=== PATIENT | male | born 1985 | race African-American/Black ===

== ENCOUNTER 2017-03-09 02:40 | Emergency (ER) | payer OTHER ==
--- NOTE | 2017-03-09 02:42 | PDOC ---
History of Present Illness - General Chief Complaint: Asthma Stated Complaint: ALLERGIES ACTING UP - History of Present Illness Initial Comments: 03/09/17 03:17 This 31-year-old man with a history of environmental ALLERGIES and asthma presents with of a few day history of progressive nasal congestion/runny nose, red/irritated eyes and pruritic skin rash. Although the patient has seasonal ALLERGIES, he was unsure what triggered his symptoms currently. Of note, patient moved into a new apartment one week ago. He states that he is unsure if there is any clear allergen present in the new apartment. Patient routinely takes albuterol inhaler as needed, Singulair, Claritin. He states although he had an occasional cough in the last week, his asthma seems to be under control and denies wheezing/shortness of breath No recent fever/chills, sore throat, productive cough, GI symptoms. Patient is waiting for his new insurance to take effect before he follows up with ear nose and throat physician. He has not had ALLERGY testing in recent years. Past History - Past Medical History Allergies/Adverse Reactions: Allergies Allergy/AdvReac Type Severity Reaction Status Date / Time shellfish derived Allergy Unknown Verified 11/11/12 17:18 No Known Drug Allergies Allergy Verified 03/09/17 02:45 SHRIMP Allergy Uncoded 11/11/12 17:20 Home Medications: Ambulatory Orders Albuterol Sulfate Inhaler - [Ventolin HFA Inhaler -] 1 - 2 inh IH QID #1 inhaler 01/03/12 Montelukast Na [Singulair -] 10 mg PO HS #20 tablet 08/29/12 Budesonide/Formeterol Fumarate [SYMBICORT 160/4.5mcg -] 1 inh PO DAILY 03/09/17 Cetirizine HCl [Zyrtec -] 10 mg PO DAILY #20 tablet 03/09/17 Olopatadine HCl [Patanol] 1 drop OU BID #1 bottle 03/09/17 Triamcinolone 0.5% Cream [Aristocort 0.5% Cream -] 1 gm TP BID #1 tube 03/09/17 Asthma: Yes - Immunization History Td Vaccination: No - Suicide/Smoking/Psychosocial Hx Smoking Status: No Smoking History: Never smoked Number of Cigarettes Smoked Daily: 0 Hx Alcohol Use: No Drug/Substance Use Hx: No Substance Use Type: None Hx Substance Use Treatment: No Review of Systems - Review of Systems Able to Perform ROS?: Yes Comments:: 12 point review of systems is negative except for what is noted in the history of present illness *Physical Exam - Physical Exam Comments: GENERAL: Adult male, alert and oriented 3, in no acute distress; speaking full sentences without difficulty HEAD: Normal with no signs of trauma. EYES: PERRLA, EOMI, sclera anicteric, erythematous conjunctiva with scanty crusting of eyelashes margins; no purulent exudate evident ENT: Ears normal, nares patent, oropharynx clear without exudates. Moist mucous membranes. NECK: Normal range of motion, supple without lymphadenopathy, JVD, or masses. LUNGS: Breath sounds equal, clear to auscultation bilaterally. No wheezes, and no crackles. HEART:Regular rate and rhythm, normal S1 and S2 without murmur, rub or gallop. ABDOMEN:.normal bowel sounds No guarding,tenderness or rebound.No masses No distention. EXTREMITIES: Normal range of motion, no edema. No clubbing or cyanosis. No erythema, or tenderness. NEUROLOGICAL: Cranial nerves II through XII grossly intact. Normal speech. No focal neurological deficits. MUSCULOSKELETAL: Back non-tender to palpation, no CVA tenderness SKIN: Warm, Dry, normal turgor, scattered fine papular rash of the back and anterior chest; no urticaria evident Progress Note - Progress Note Progress Note: This 31-year-old man with a history of environmental ALLERGIES and asthma presents with itchy, irritated, erythematous eyes along with runny nose/nasal congestion and itchy skin. Patient recently moved into a new apartment without a clear allergen being present in the new environment. Exam notable for clear lung shankar and good air exchange. Bilateral erythematous conjunctiva consistent with ALLERGIC conjunctivitis present. Clinical presentation most consistent with reaction to an environmental ALLERGEN ; since the pollen season has past, the patient has recently moved into a new apartment, allergen is most likely indoor in his new home. He states that Claritin has been the most effective antihistamine in the past but recently has been less effective. Patient will be given prescription for Zyrtec to be used as needed. Also, Patanol drops will be prescribed for his itchy/inflamed eyes. Triamcinolone 0.5 percent cream for his pruritic rash will also be described. Patient should return if he has wheezing or shortness of breath. Meanwhile, he should follow-up with his doctor if he has persistent symptoms of nasal congestion/rhinorrhea or ALLERGIC conjunctivitis. He should plan to follow-up with ENT/ALLERGY doctor when he has insurance coverage. *DC/Admit/Observation/Transfer Diagnosis at time of Disposition: Allergy, unspecified not elsewhere classified Qualifiers: Encounter type: initial encounter Qualified Code(s): T78.40XA - Allergy, unspecified, initial encounter - Discharge Dispostion Disposition: HOME Condition at time of disposition: Stable - Prescriptions Prescriptions: Cetirizine HCl [Zyrtec -] 10 mg PO DAILY #20 tablet Olopatadine HCl [Patanol] 1 drop OU BID #1 bottle Triamcinolone 0.5% Cream [Aristocort 0.5% Cream -] 1 gm TP BID #1 tube - Referrals Referrals: Jose Siddiqi MD [Primary Care Provider] - 1 week - Patient Instructions Additional Instructions: If Claritin does not work, Zyrtec 5 mg daily as needed Patanol eyedrops: 1 drop to each eye twice a day for 1 week Triamcinolone 0.5% cream to areas of for rash twice a day Continue other medications as prescribed Return to ER if you have severe wheezing/shortness of breath Follow-up with your general doctor within the next week Follow-up with ears/nose/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
[2017-03-09 02:45] VITALS: BP 147/81; PULSE 81; TEMP 98.5; BMI 38.0
== END 2017-03-09 03:14 | disposition home or self-care (01) ==
LOC: FER 02:40
DX: T78.40XA Allergy, unspecified, initial encounter (principal); Z91.013 Allergy to seafood; X58.XXXA Exposure to other specified factors, initial encounter
CPT/HCPCS: 99281-25

== ENCOUNTER 2018-02-15 23:40 | Emergency (ER) | payer OTHER ==
[2018-02-15 23:55] VITALS: BP 133/76; PULSE 86; TEMP 98.5; BMI 38.0
[2018-02-15] MEDS ORDERED: methylPREDNISolone NA SUCC 125 MG/2 ML VIAL IVPB ONE (23:55)
[2018-02-15] MEDS ORDERED: ALBUTEROL SO4 2.5/IPRATROPIUM 0.5 INH SOL 3 ML VIAL.NEB. NEB ONE ×2 (23:55→23:59)
[2018-02-15] MEDS ORDERED: MAGNESIUM SULF 50% (8.12 MEQ/2 ML-1 GM VIAL) IVPB ONE (23:56)
--- NOTE | 2018-02-15 23:58 | PDOC ---
Attending Attestation - Resident Resident Name: LaronDominik buckley - ED Attending Attestation I have performed the following: I have examined & evaluated the patient, The case was reviewed & discussed with the resident, I agree w/resident's findings & plan, Exceptions are as noted - HPI HPI: 02/15/18 23:56 32-year-old male with a long history of asthma and seasonal allergies presents with worsening wheezing over the past week. He takes Claritin, Cynbicort, respiratory treatments at home but he has not had improvement in his symptoms. - Physicial Exam PE: 02/15/18 23:58 Well-nourished well-developed 32-year-old male presents with diffuse wheezing and increased respiratory rate in moderate distress. Head normocephalic/atraumatic. Eyes pupils equal, reactive to light and accommodation, extraocular muscles intact. Neck no JVD, supple Lungs diffuse extremity wheezing and increased accessory muscle use. CVS tachycardia Abdomen protuberant but nontender. Extremities no rash. Skin warm and dry. Neuro alert and oriented 3, ambulatory. Psych anxious - Medical Decision Making 02/15/18 23:59 Differential diagnosis asthma exacerbation, seasonal allergies. IV steroids, CBC, comp, respiratory treatments 3, reassess 02/16/18 01:25 pt 's symptoms have improved bur he still has diffuse wheezing. cxr pending 02/16/18 01:27 labs are unremarkable
[2018-02-15] MEDS ORDERED: MAGNESIUM 1GM/D5W - 2 GM/200 ML IVPB IVPB ONE (23:59)
[2018-02-15] MEDS ORDERED: methylPREDNISolone NA SUCC 125 MG/2 ML VIAL ONE (23:59)
[2018-02-16] MEDS ORDERED: SODIUM CHLORIDE 1,000 ML IV STA (00:06)
[2018-02-16 00:27] LABS: BASO % 0.7 % (0-2.0); EOS % 13.3 % (0-4.5); HEMOGLOBIN 13.7 GM/dL (11.7-16.9); LYMPH % 28.1 % (8-40); MCH 26.6 pg (25.7-33.7); MCHC 32.7 g/dl (32.0-35.9); MEAN CELL VOLUME 81.2 fl (80-96); MEAN PLT VOLUME 8.6 fl (7.5-11.1); MONO % 11.2 % (3.8-10.2); NEUT % 46.7 % (42.8-82.8); PLATELET COUNT 229 K/MM3 (134-434); RBC 5.17 M/mm3 (4.00-5.60); RDW 14.2 % (11.9-15.9); WHITE BLOOD COUNT 6.9 K/mm3 (4.0-10.0)
[2018-02-16 00:51] LABS: ALBUMIN 3.5 g/dl (3.4-5.0); ALK PHOS 86 U/L (45-117); ANION GAP 8 MMOL/L (8-16); BILIRUBIN,TOTAL 0.4 mg/dL (0.2-1); BLOOD UREA NITROGEN 11 mg/dL (7-18); CALCIUM 8.7 mg/dL (8.5-10.1); CHLORIDE 105 mmol/L (98-107); CO2 27 mmol/L (21-32); GLUCOSE,RANDOM 102 mg/dL (74-106); POTASSIUM 3.9 mmol/L (3.5-5.1); SGOT/AST 19 U/L (15-37); SGPT/ALT 27 U/L (13-61); SODIUM 140 mmol/L (136-145); TOT PROT 6.9 g/dl (6.4-8.2)
--- NOTE | 2018-02-16 00:55 | PDOC ---
History of Present Illness - General Chief Complaint: Asthma Stated Complaint: ASTHMA Time Seen by Provider: 02/15/18 23:46 History Source: Patient Exam Limitations: No Limitations - History of Present Illness Initial Comments: 02/16/18 00:40 32 yo male pmh significant for eczema, allergies and asthma since childhood presents with worsening wheezing over the last week. Patient tried home dose of Cynbicort and daily Claritin without relief. Last asthma exacerbation was last February, received breathing treatments, steroids and 7 day steroid sara with improvement. Denies recent illness, N/V/F/C, CP but admits to non productive cough Past History - Past Medical History Allergies/Adverse Reactions: Allergies Allergy/AdvReac Type Severity Reaction Status Date / Time shellfish derived Allergy Unknown Verified 02/15/18 23:55 No Known Drug Allergies Allergy Verified 02/15/18 23:55 SHRIMP Allergy Uncoded 02/15/18 23:55 Home Medications: Ambulatory Orders Albuterol Sulfate Inhaler - [Ventolin HFA Inhaler -] 1 - 2 inh IH QID #1 inhaler 01/03/12 Montelukast Na [Singulair -] 10 mg PO HS #20 tablet 08/29/12 Budesonide/Formeterol Fumarate [SYMBICORT 160/4.5mcg -] 1 inh PO DAILY 03/09/17 Cetirizine HCl [Zyrtec -] 10 mg PO DAILY #20 tablet 03/09/17 Olopatadine HCl [Patanol] 1 drop OU BID #1 bottle 03/09/17 Triamcinolone 0.5% Cream [Aristocort 0.5% Cream -] 1 gm TP BID #1 tube 03/09/17 Albuterol Sulfate Inhaler - [Ventolin HFA Inhaler -] 1 puff IH Q6H #1 inhaler Budesonide/Formeterol Fumarate [SYMBICORT 160/4.5mcg -] 1 inh IH DAILY #1 inhaler 02/16/18 Methylprednisolone [Medrol Dose Arnel] 4 mg PO ASDIR #21 tablet 02/16/18 Asthma: Yes COPD: No - Immunization History Td Vaccination: No Immunization Up to Date: Yes - Suicide/Smoking/Psychosocial Hx Smoking Status: No Smoking History: Never smoked Have you smoked in the past 12 months: No Number of Cigarettes Smoked Daily: 0 Information on smoking cessation initiated: No Hx Alcohol Use: No Drug/Substance Use Hx: No Substance Use Type: None Hx Substance Use Treatment: No Review of Systems - Review of Systems Constitutional: No: Chills, Fever Respiratory: Yes: Cough (non productive), Shortness of Breath, Wheezing Cardiac (ROS): No: Chest Pain ABD/GI: No: Constipated, Diarrhea, Nausea, Vomiting : No: Burning, Dysuria Integumentary: No: Change in Color *Physical Exam - Vital Signs Last Vital Signs Temp Pulse Resp BP Pulse Ox 98.5 F 86 22 H 133/76 98 02/15/18 23:40 02/15/18 23:40 02/15/18 23:40 02/15/18 23:40 02/15/18 23:55 - Physical Exam General Appearance: Yes: Nourished, Appropriately Dressed. No: Apparent Distress HEENT: positive: EOMI Neck: positive: Trachea midline Respiratory/Chest: positive: Wheezing. negative: Lungs Clear (diffuse wheezing) , Respiratory Distress, Accessory Muscle Use, Crackles, Rales Cardiovascular: positive: Regular Rhythm, Regular Rate, S1, S2. negative: Edema , JVD, Murmur Vascular Pulses: Dorsalis-Pedis (R): 3+, Doralis-Pedis (L): 3+ Gastrointestinal/Abdominal: positive: Flat, Soft. negative: Tenderness Extremity: positive: Normal Capillary Refill Integumentary: positive: Normal Color, Dry, Warm Neurologic: positive: Fully Oriented, Alert, Normal Mood/Affect ED Treatment Course - LABORATORY CBC & Chemistry Diagram: 02/16/18 00:08 02/16/18 00:08 - ADDITIONAL ORDERS Additional order review: 02/16/18 00:08 RBC 5.17 MCV 81.2 MCHC 32.7 RDW 14.2 MPV 8.6 Neutrophils % 46.7 Lymphocytes % 28.1 Monocytes % 11.2 H Eosinophils % 13.3 H Basophils % 0.7 - Medications Given in the ED: ED Medications Discontinued Medications Generic Name Dose Route Start Last Admin Trade Name Freq PRN Reason Stop Dose Admin Albuterol/Ipratropium 3 amp 02/15/18 23:55 02/16/18 00:02 Duoneb - NEB 02/15/18 23:56 3 amp ONCE ONE Administration Magnesium Sulfate 2 gm 02/15/18 23:56 02/16/18 00:08 Magnesium Sulfate IVPB 02/15/18 23:57 2 gm ONCE ONE Administration Methylprednisolone Sodium Succinate 125 mg 02/15/18 23:55 02/16/18 00:08 Solu-Medrol - IVPB 02/15/18 23:56 125 mg ONCE ONE Administration Medical Decision Making - Medical Decision Making 02/16/18 02:17 32 yo male pmh of asthma presents with SOB and chest tightness with wheezing for 1 week Exam: diffusely wheezing Received 4 duonebs, 125 mg Solu Medrol, 2g mag Clinically improving but still wheezing. Chest x ray ordered and will reassess after treatment Reassessed and patient greatly improved wheezing. Chest X ray normal Will follow up with PCP Sent Medrol dose arnel, albuterol inhaler 02/16/18 02:49 *DC/Admit/Observation/Transfer Diagnosis at time of Disposition: Asthma exacerbation Qualifiers: Asthma severity: moderate Asthma persistence: unspecified Qualified Code(s): J45.901 - Unspecified asthma with (acute) exacerbation - Discharge Dispostion Disposition: HOME Condition at time of disposition: Fair - Prescriptions Prescriptions: Albuterol Sulfate Inhaler - [Ventolin HFA Inhaler -] 1 puff IH Q6H #1 inhaler Budesonide/Formeterol Fumarate [SYMBICORT 160/4.5mcg -] 1 inh IH DAILY #1 inhaler Methylprednisolone [Medrol Dose Arnel] 4 mg PO ASDIR #21 tablet - Referrals Referrals: Jose Siddiqi MD [Primary Care Provider] - - Patient Instructions Printed Discharge Instructions: DI for Asthma -- Adult Additional Instructions: Please follow up with you Primary Care Doctor within the next 2 days. Please return to the Emergency Room for new or worsening symptoms. Please take the Medrol Dose Arnel as prescribed Thank you - Post Discharge Activity
[2018-02-16] MEDS ORDERED: ALBUTEROL SO4 2.5/IPRATROPIUM 0.5 INH SOL 3 ML VIAL.NEB. NEB ONE (02:05)
--- NOTE | 2018-02-16 02:37 | PDOC ---
*Physical Exam - Vital Signs Last Vital Signs Temp Pulse Resp BP Pulse Ox 98.5 F 86 22 H 133/76 98 02/15/18 23:40 02/15/18 23:40 02/15/18 23:40 02/15/18 23:40 02/15/18 23:55 ED Treatment Course - LABORATORY CBC & Chemistry Diagram: 02/16/18 00:08 02/16/18 00:08 - ADDITIONAL ORDERS Additional order review: Laboratory Results 02/16/18 00:08 Sodium 140 Potassium 3.9 Chloride 105 Carbon Dioxide 27 Anion Gap 8 BUN 11 Creatinine 1.0 Creat Clearance w eGFR > 60 Random Glucose 102 Calcium 8.7 Total Bilirubin 0.4 AST 19 ALT 27 Alkaline Phosphatase 86 Total Protein 6.9 Albumin 3.5 02/16/18 00:08 RBC 5.17 MCV 81.2 MCHC 32.7 RDW 14.2 MPV 8.6 Neutrophils % 46.7 Lymphocytes % 28.1 Monocytes % 11.2 H Eosinophils % 13.3 H Basophils % 0.7 - Medications Given in the ED: ED Medications Discontinued Medications Generic Name Dose Route Start Last Admin Trade Name Freq PRN Reason Stop Dose Admin Albuterol/Ipratropium 3 amp 02/15/18 23:55 02/16/18 00:02 Duoneb - NEB 02/15/18 23:56 3 amp ONCE ONE Administration Albuterol/Ipratropium 1 amp 02/16/18 02:05 02/16/18 02:07 Duoneb - NEB 02/16/18 02:06 1 amp ONCE ONE Administration Sodium Chloride 1,000 mls @ 1,000 mls/hr 02/16/18 00:06 02/16/18 00:09 Normal Saline - IV 02/16/18 01:05 1,000 mls/hr ASDIR STA Administration Magnesium Sulfate 2 gm 02/15/18 23:56 02/16/18 00:08 Magnesium Sulfate IVPB 02/15/18 23:57 2 gm ONCE ONE Administration Methylprednisolone Sodium Succinate 125 mg 02/15/18 23:55 02/16/18 00:08 Solu-Medrol - IVPB 02/15/18 23:56 125 mg ONCE ONE Administration Medical Decision Making - Medical Decision Making 02/16/18 02:35 Patient signed out by Dr. Yuen. In short patient with asthma exacerbation, given 4 duoneb, Mg, solumedrol and with improved wheezing on exam. Plan for symptomatic improvement and d/c. *DC/Admit/Observation/Transfer Diagnosis at time of Disposition: Asthma exacerbation Qualifiers: Asthma severity: moderate Asthma persistence: unspecified Qualified Code(s): J45.901 - Unspecified asthma with (acute) exacerbation - Discharge Dispostion Disposition: HOME Condition at time of disposition: Fair - Prescriptions Prescriptions: Methylprednisolone [Medrol Dose Arnel] 4 mg PO ASDIR #21 tablet - Referrals Referrals: Jose Siddiqi MD [Primary Care Provider] - - Patient Instructions Printed Discharge Instructions: DI for Asthma -- Adult - Post Discharge Activity
== END 2018-02-16 02:55 | disposition home or self-care (01) ==
LOC: JER 23:40
PROC: 3E0F7GC Introduction of Other Therapeutic Substance into Respiratory Tract, Via Natural or Artificial Opening (ICD-10-PCS; principal; 2018-02-15)
PROC: 3E0F7GC Introduction of Other Therapeutic Substance into Respiratory Tract, Via Natural or Artificial Opening (ICD-10-PCS; 2018-02-15)
PROC: 3E0337Z Introduction of Electrolytic and Water Balance Substance into Peripheral Vein, Percutaneous Approach (ICD-10-PCS; 2018-02-15)
PROC: 3E033GC Introduction of Other Therapeutic Substance into Peripheral Vein, Percutaneous Approach (ICD-10-PCS; 2018-02-15)
PROC: 3E0333Z Introduction of Anti-inflammatory into Peripheral Vein, Percutaneous Approach (ICD-10-PCS; 2018-02-15)
DX: J45.901 Unspecified asthma with (acute) exacerbation (principal)
CPT/HCPCS: 36415; 71046-TC-FY; 80053; 85025; 94640; 96361; 96374; 96375; 99283-25; J7030

== ENCOUNTER 2018-12-11 23:06 | Emergency (ER) | payer OTHER | END 2018-12-12 00:59 | disposition home or self-care (01) | LOC: JER 23:06 ==

== ENCOUNTER 2019-03-14 20:16 | Emergency (ER) | payer OTHER ==
[2019-03-14 20:19] VITALS: BMI 34.9
[2019-03-14] MEDS ORDERED: predniSONE 20 MG TABLET (UD) PO ONE (20:40)
[2019-03-14] MEDS: ALBUTEROL SO4 2.5/IPRATROPIUM 0.5 INH SOL 3 ML VIAL.NEB. NEB SCH ×4 (20:40→21:40)
--- NOTE | 2019-03-14 20:43 | PDOC ---
History of Present Illness - General Chief Complaint: Asthma Stated Complaint: ASTHMA Time Seen by Provider: 03/14/19 20:31 History Source: Patient, Old Records Exam Limitations: No Limitations - History of Present Illness Initial Comments: 03/14/19 20:40 HISTORY OF PRESENT ILLNESS: 33-year-old male with past medical history of asthma (no intubations; 3-4 visits annually for asthma related complaints between primary doctor in the emergency department) presents to the emergency department for evaluation of chest tightness and wheezing. Patient reports he presented to the emergency department for evaluation has been using his pump repeatedly over the past 4 days and wanted to get further treatment before his condition worsens. He denies any fevers, chills, cough. No recent travel or sick contacts. PAST MEDICAL HISTORY: Denies past medical history SURGICAL HISTORY: Denies ALLERGIES: No known drug allergies REVIEW OF SYSTEMS General/Constitutional: Denies fever or chills. Denies weakness, weight change. HEENT: Denies change in vision. Denies ear pain or discharge. Denies sore throat. Cardiovascular: Denies chest pain or shortness of breath. Respiratory: See HPI Gastrointestinal: Denies nausea, vomiting, diarrhea or constipation. Denies rectal bleeding. Genitourinary: Denies dysuria, frequency, or change in urination. Musculoskeletal: Denies joint or muscle swelling or pain. Denies neck or back pain. Skin and breasts: Denies rash or easy bruising. Neurologic: Denies headache, vertigo, loss of consciousness, or loss of sensation. Psychiatric: Denies depression or anxiety. Endocrine: Denies increased thirst. Denies abnormal weight change. Hematologic/Lymphatic: Denies anemia, easy bleeding, or history of blood clots. Allergic/Immunologic: Denies hives or skin allergy. Denies latex allergy. PHYSICAL EXAM General Appearance: Well-appearing, appropriately dressed. No apparent distress , no intoxication. HEENT: EOMI, PERRLA, normal ENT inspection, normal voice, TMs normal, pharynx normal. No conjunctival pallor. No photophobia, scleral icterus. Neck: Supple. Trachea midline. No tenderness, rigidity, carotid bruit, stridor , lymphadenopathy, or thyromegaly. Respiratory/Chest: Lungs CTAB. No shortness of breath, chest tenderness, respiratory distress, accessory muscle use. No crackles, rales, rhonchi, stridor , dullness. Scattered inspiratory and expiratory wheezing. Speaking full sentences. Cardiovascular: RRR. S1, S2. No JVD, murmur, bradycardia, tachycardia. Integumentary: Appropriate color, dry, warm. No cyanosis, erythema, jaundice or rash Past History - Past Medical History Allergies/Adverse Reactions: Allergies Allergy/AdvReac Type Severity Reaction Status Date / Time shellfish derived Allergy Unknown Verified 03/14/19 20:18 No Known Drug Allergies Allergy Verified 03/14/19 20:18 SHRIMP Allergy Uncoded 03/14/19 20:18 Home Medications: Ambulatory Orders Cetirizine HCl [Zyrtec -] 10 mg PO DAILY #20 tablet 03/09/17 Albuterol Sulfate Inhaler - [Ventolin HFA Inhaler -] 1 puff IH Q6H #1 inhaler Montelukast Na [Singulair -] 10 mg PO HS #20 tablet 12/12/18 predniSONE [Deltasone -] 20 mg PO BID 3 Days #6 tablet 12/12/18 Albuterol Sulfate Inhaler - [Ventolin HFA Inhaler -] 1 - 2 inh IH QID #1 inhaler 03/14/19 Prednisone [Prednisone 50 MG TABLETS] 50 mg PO DAILY #4 tablet 03/14/19 Asthma: Yes COPD: No - Surgical History GI Surgery: Yes (HERNIA) - Immunization History Td Vaccination: No Immunization Up to Date: Yes - Psycho Social/Smoking Cessation Hx Smoking Status: No Smoking History: Never smoked Have you smoked in the past 12 months: No Number of Cigarettes Smoked Daily: 0 Hx Alcohol Use: No Drug/Substance Use Hx: No Substance Use Type: None Hx Substance Use Treatment: No *Physical Exam - Vital Signs Last Vital Signs Temp Pulse Resp BP Pulse Ox 97.6 F 73 18 134/84 99 03/14/19 20:16 03/14/19 20:16 03/14/19 20:16 03/14/19 20:16 03/14/19 20:16 Medical Decision Making - Medical Decision Making 03/14/19 20:42 A/P: 33-year-old male for evaluation of asthma exacerbation DuoNeb x4 Prednisone 60 mg orally now Reassess Likely discharge 03/14/19 21:33 Repeat lung exam reveals clear lungs. Patient states she feels improved and his breathing is easier at this time. Patient no longer has the tightness sensation in his chest. I will discharge patient home with prescription for albuterol MDI and prednisone 50 mg for the next 3 days I discussed the physical exam findings, ancillary test results and final diagnoses with the patient. I answered all of the patient's questions. The patient was satisfied with the care received and felt comfortable with the discharge plan and treatment plan. The patient will call their primary care physician within 24 hours to arrange follow-up and will return to the Emergency Department with any new, persistent or worsening symptoms. Discharge - Discharge Information Problems reviewed: Yes Clinical Impression/Diagnosis: Asthma exacerbation Qualifiers: Asthma severity: mild Asthma persistence: intermittent Qualified Code(s): J45.21 - Mild intermittent asthma with (acute) exacerbation Condition: Fair Disposition: HOME - Admission No - Additional Discharge Information Prescriptions: Albuterol Sulfate Inhaler - [Ventolin HFA Inhaler -] 1 - 2 inh IH QID #1 inhaler Prednisone [Prednisone 50 MG TABLETS] 50 mg PO DAILY #4 tablet - Follow up/Referral Referrals: Jose Siddiqi MD [Primary Care Provider] - - Patient Discharge Instructions Additional Instructions: Rest, drink lots of fluids: Teas, water, soups, Pedialyte Saltwater gargles Steamy showers/seem to face break up mucus Avoid contact with others until fevers and cough resolved Lots of handwashing and good hygiene Continue [id number] medications for symptomatic relief Tylenol or Motrin for fever and pain Continue albuterol nebulizers every 4-6 hours for the next 2 days then as needed for continued cough Prednisone as directed until completed Followup with private physician in one to 2 days Return to emergency department / pediatric hospital for worsened symptoms, fevers, dehydration - Post Discharge Activity
[2019-03-14] MEDS ORDERED: ALBUTEROL SO4 2.5/IPRATROPIUM 0.5 INH SOL 3 ML VIAL.NEB. NEB ONE (20:48)
[2019-03-14] MEDS ORDERED: predniSONE 20 MG TABLET (UD) ONE (20:48)
[2019-03-14 21:54] VITALS: BP 128/81; PULSE 86; TEMP 98.1
== END 2019-03-14 21:54 | disposition home or self-care (01) ==
LOC: JER 20:16
PROC: 3E0F7GC Introduction of Other Therapeutic Substance into Respiratory Tract, Via Natural or Artificial Opening (ICD-10-PCS; principal; 2019-03-14)
DX: J45.21 Mild intermittent asthma with (acute) exacerbation (principal)
CPT/HCPCS: 99281-25

== ENCOUNTER 2019-04-10 20:31 | Emergency (ER) | payer OTHER ==
[2019-04-10 20:49] VITALS: BP 138/73; PULSE 76; TEMP 98.1; BMI 38.0
[2019-04-10] MEDS ORDERED: ALBUTEROL SO4 0.5 % INH SOLN 2.5 MG/0.5 ML VIAL.NEB. NEB ONE (20:59)
[2019-04-10] MEDS ORDERED: ALBUTEROL SO4 0.083% IH SOL 2.5 MG/3 ML VIAL.NEB. NEB ONE (21:00)
[2019-04-10] MEDS ORDERED: ALBUTEROL SO4 2.5/IPRATROPIUM 0.5 INH SOL 3 ML VIAL.NEB. NEB ONE ×2 (21:19→21:28)
[2019-04-10] MEDS ORDERED: predniSONE 20 MG TABLET (UD) PO ONE (23:09)
[2019-04-10] MEDS ORDERED: predniSONE 20 MG TABLET (UD) ONE (23:11)
--- NOTE | 2019-04-11 01:16 | PDOC ---
Documentation entered by Ruby Crum SCRIBE, acting as scribe for Fannie Forbes MD. Fannie Forbes MD: This documentation has been prepared by the Radames horner Mackenzie, SCRIBE, under my direction and personally reviewed by me in its entirety. I confirm that the documentation accurately reflects all work , treatment, procedures, and medical decision making performed by me. History of Present Illness - General Chief Complaint: Asthma Stated Complaint: ASTHMA Time Seen by Provider: 04/10/19 20:42 History Source: Patient Exam Limitations: No Limitations - History of Present Illness Initial Comments: This 33-year-old man with a history of asthma since childhood presents with few day history of increased wheezing. He has had no upper respiratory infection symptoms but is complaining of chest congestion during this time. He has been using his albuterol inhaler but he has run out of his Symbicort inhaler. He denies fever/chills, runny nose. He has had no recent travel or known sick contacts. He lives at home where his mother smokes. He has had no history of smoking himself. No other exposure to new allergens. Patient is currently looking for a new general doctor. Non-smoker; denies daily alcohol use; no other recreational drug use Past History - Past Medical History Allergies/Adverse Reactions: Allergies Allergy/AdvReac Type Severity Reaction Status Date / Time shellfish derived Allergy Unknown Verified 04/10/19 20:33 No Known Drug Allergies Allergy Verified 04/10/19 20:33 SHRIMP Allergy Uncoded 03/14/19 20:18 Home Medications: Ambulatory Orders Albuterol Sulfate Inhaler - [Ventolin HFA Inhaler -] 1 - 2 inh IH QID #1 inhaler 03/14/19 Budesonide/Formeterol Fumarate [SYMBICORT 160/4.5mcg -] 1 inh IH BID #1 inhaler 04/10/19 Budesonide/Formeterol Fumarate [SYMBICORT 160/4.5mcg -] 1 inh PO BID 04/10/19 Montelukast Sodium [Singulair] 10 mg PO DAILY #14 tablet 04/10/19 predniSONE [Deltasone -] 40 mg PO DAILY #6 tablet 04/10/19 Asthma: Yes COPD: No - Surgical History GI Surgery: Yes (HERNIA) - Immunization History Td Vaccination: No Immunization Up to Date: Yes - Psycho Social/Smoking Cessation Hx Smoking Status: No Smoking History: Never smoked Have you smoked in the past 12 months: No Number of Cigarettes Smoked Daily: 0 Information on smoking cessation initiated: No Hx Alcohol Use: No Drug/Substance Use Hx: No Substance Use Type: None Hx Substance Use Treatment: No Review of Systems - Review of Systems Able to Perform ROS?: Yes Comments:: 12 point review of systems is negative except for what is noted in the history of present illness *Physical Exam - Vital Signs Last Vital Signs Temp Pulse Resp BP Pulse Ox 98.1 F 76 17 138/73 98 04/10/19 20:36 04/10/19 20:36 04/10/19 20:36 04/10/19 20:36 04/10/19 20:36 - Physical Exam GENERAL: Adult male, alert and oriented x3, in mild distress secondary to wheezing HEAD: Normal with no signs of trauma. EYES: PERRLA, EOMI, sclera anicteric, conjunctiva clear. ENT: Ears normal, nares patent, oropharynx clear without exudates. Dry mucous membranes. NECK: Normal range of motion, supple without lymphadenopathy, JVD, or masses. LUNGS: Breath sounds equal, clear to auscultation bilaterally. Scattered bilateral wheezing. HEART:Regular rate and rhythm, normal S1 and S2 without murmur, rub or gallop. ABDOMEN:.normal bowel sounds No guarding,tenderness or rebound.No masses No distention. EXTREMITIES: Normal range of motion, no edema. No clubbing or cyanosis. No erythema, or tenderness. NEUROLOGICAL: Cranial nerves II through XII grossly intact. Normal speech. No focal neurological deficits. MUSCULOSKELETAL: Back non-tender to palpation, no CVA tenderness SKIN: Warm, Dry, normal turgor, no rashes or lesions noted. ED Treatment Course - Medications Given in the ED: ED Medications Discontinued Medications Generic Name Dose Route Start Last Admin Trade Name Freq PRN Reason Stop Dose Admin Albuterol Sulfate 1 amp 04/10/19 20:59 04/10/19 21:02 Ventolin 0.5% - NEB 04/10/19 21:00 1 amp ONCE ONE Administration Albuterol/Ipratropium 1 amp 04/10/19 21:19 04/10/19 21:29 Duoneb - NEB 04/10/19 21:20 1 amp ONCE ONE Administration Medical Decision Making - Medical Decision Making Albuterol nebulizer treatment given: The patient feels mildly improved. Reexamination reveals that patient continues to have scattered wheezing DuoNeb nebulizer treatment administered: Patient reports marked improvement Reexamination reveals the patient has clear breath sounds with good air movement. Clinical presentation consistent with acute exacerbation of asthma. Patient states that he has been seen in emergency room's several times in the last few weeks and has been prescribed prednisone but "forgets" to fill prescription. Prednisone 40 mg given now and prescription for 40 mg daily for the next 3 days sent to his pharmacy. Symbicort refill also sent to the patient's pharmacy. Patient was given Dr. Lewis's referral information for follow-up: He should follow-up within the next 5 to 7 days and return to the ER if he has any recurrence of persistent wheezing or if he develops shortness of breath/high fever Discharge - Discharge Information Problems reviewed: Yes Clinical Impression/Diagnosis: Asthma exacerbation Qualifiers: Asthma severity: moderate Asthma persistence: unspecified Qualified Code(s): J45.901 - Unspecified asthma with (acute) exacerbation Condition: Stable Disposition: HOME - Additional Discharge Information Prescriptions: Budesonide/Formeterol Fumarate [SYMBICORT 160/4.5mcg -] 1 inh IH BID #1 inhaler Montelukast Sodium [Singulair] 10 mg PO DAILY #14 tablet predniSONE [Deltasone -] 40 mg PO DAILY #6 tablet - Follow up/Referral Referrals: Jimi Lewis MD [Staff Physician] - - Patient Discharge Instructions Patient Printed Discharge Instructions: Asthma -- Adult Additional Instructions: Continue albuterol and Symbicort inhaler as prescribed Prednisone 40 mg daily for the next 3 days/take with food Singulair [address] Lewis's office on April 12 and arrange follow-up within 1 week Return to ER if you have persistent wheezing, shortness of breath or fever - Post Discharge Activity
== END 2019-04-10 23:22 | disposition home or self-care (01) ==
LOC: FER 20:31
PROC: 3E0F7GC Introduction of Other Therapeutic Substance into Respiratory Tract, Via Natural or Artificial Opening (ICD-10-PCS; principal; 2019-04-10)
DX: J45.901 Unspecified asthma with (acute) exacerbation (principal); Z91.013 Allergy to seafood
CPT/HCPCS: 99281-25

== ENCOUNTER 2019-05-25 20:34 | Emergency (ER) | payer OTHER ==
[2019-05-25 20:37] VITALS: BP 135/87; PULSE 90; TEMP 98.2; BMI 38.0
[2019-05-25] MEDS ORDERED: predniSONE 20 MG TABLET (UD) PO ONE (20:38)
[2019-05-25] MEDS ORDERED: ALBUTEROL SO4 2.5/IPRATROPIUM 0.5 INH SOL 3 ML VIAL.NEB. NEB ONE (20:38)
--- NOTE | 2019-05-25 20:38 | PDOC ---
Rapid Medical Evaluation Time Seen by Provider: 05/25/19 20:35 Medical Evaluation: Allergies Allergy/AdvReac Type Severity Reaction Status Date / Time shellfish derived Allergy Unknown Verified 04/10/19 20:33 No Known Drug Allergies Allergy Verified 04/10/19 20:33 SHRIMP Allergy Uncoded 03/14/19 20:18 05/25/19 20:35 Pt c/o: wheezing sob x 3 days, unrelieved with inhaler, no fever Pt on brief exam: insp/exp wheeze demetria, bs + throughout, vss, speaking full sentences pt ordered for: duoneb, prednisone Pt to proceed to the ED 05/25/19 20:38 Discharge Disposition - Diagnosis Asthma, Eloped from emergency department - Discharge Dispostion Disposition: ELOPED Condition at time of disposition: Unchanged/Unknown - Referrals Referrals: Jose Siddiqi MD [Primary Care Provider] - - Patient Instructions - Post Discharge Activity
== END 2019-05-25 21:58 | disposition left against medical advice (07) ==
LOC: JERFT 20:34
DX: J45.909 Unspecified asthma, uncomplicated (principal); Z91.013 Allergy to seafood
CPT/HCPCS: 99281-25

== ENCOUNTER 2021-11-22 08:11 | Emergency (ER) | payer OTHER ==
[2021-11-22 08:19] VITALS: BP 125/78; PULSE 81; RESP 20; TEMP 98.2; BMI 34.9
[2021-11-22] MEDS ORDERED: ALBUTEROL SO4 2.5/IPRATROPIUM 0.5 INH SOL 3 ML VIAL.NEB. NEB ONE ×2 (09:07→09:13)
[2021-11-22] MEDS ORDERED: predniSONE 20 MG TABLET (UD) PO ONE (09:08)
[2021-11-22] MEDS ORDERED: predniSONE 20 MG TABLET (UD) ONE (09:13)
== END 2021-11-22 10:05 | disposition home or self-care (01) ==
LOC: FER 08:11
PROC: 3E0F7GC Introduction of Other Therapeutic Substance into Respiratory Tract, Via Natural or Artificial Opening (ICD-10-PCS; principal; 2021-11-22)
DX: J45.21 Mild intermittent asthma with (acute) exacerbation (principal)
CPT/HCPCS: 0241U-QW; 99284-25